=== PATIENT | female | born 1955 | race Caucasian/White ===

== ENCOUNTER 2018-09-22 22:19 | Inpatient (IN) | payer MEDICARE | END 2018-09-24 13:05 | disposition home or self-care (01) | LOC: ED HOLD 09-23 01:11 → ER 22:19 → SUR 3N 09-23 18:49 | DX: J96.01 Acute respiratory failure with hypoxia (principal); J44.1 Chronic obstructive pulmonary disease with (acute) exacerbation; J44.0 Chronic obstructive pulmonary disease with (acute) lower respiratory infection; J20.9 Acute bronchitis, unspecified; E87.6 Hypokalemia; I10 Essential (primary) hypertension ==

== ENCOUNTER 2018-12-11 07:21 | Emergency (ER) | payer MEDICARE ==
[~2018-12-11] VITALS: Ht 160 cm; Wt 90.9 kg
[~2018-12-11 07:21] MED LIST: ALBU6.7H INH; FAMO20TA8 PO; METO50TA7 PO
[2018-12-11] MEDS ORDERED: SULF1TAB49 PO (07:45)
[2018-12-11] MEDS ORDERED: CEPH500C5 PO (07:57)
[2018-12-11] MEDS ORDERED: PRED20TA PO (07:57)
[2018-12-11] MEDS ORDERED: diphenhydrAMINE 25mg capsule PO ONE (08:00)
[2018-12-11] MEDS ORDERED: methylPREDNISolone sod succ 125mg/2ml vial IM ONE (08:00)
[2018-12-11 08:13] VITALS: BP 159/87
== END 2018-12-11 08:16 | disposition home or self-care (01) ==
LOC: ER 07:22
DX: T63.441A Toxic effect of venom of bees, accidental (unintentional), initial encounter (principal); L03.011 Cellulitis of right finger; I10 Essential (primary) hypertension; Z79.2 Long term (current) use of antibiotics; Z79.899 Other long term (current) drug therapy; Y92.89 Other specified places as the place of occurrence of the external cause
CPT/HCPCS: 96372; 99283; J2930; Q0163

== ENCOUNTER 2021-09-19 10:24 | Emergency (ER) | payer MEDICARE ==
[~2021-09-19] VITALS: Ht 160 cm; Wt 84.6 kg
[~2021-09-19 10:24] MED LIST changes: -ALBU6.7H INH; +ALBU6.7H9 INH
[2021-09-19 12:10] LABS: BASOPHILS # (AUTO) 0.1 X10'3 (0-0.2); BASOPHILS % (AUTO) 0.8 % (0-1); EOSINOPHILS % (AUTO) 0.5 % (0-6); HEMATOCRIT 39.8 % (35.0-45.0); HEMOGLOBIN 13.2 g/dl (12.0-16.0); LYMPHOCYTES # (AUTO) 1.3 X10'3 (1.1-4.8); LYMPHOCYTES % (AUTO) 15.6 % (21-51); MEAN CORPUSCULAR HEMOGLOBIN 30.4 PG (27.0-31.0); MEAN PLATELET VOLUME 9.9 FL (7.4-10.4); MONOCYTES # (AUTO) 0.7 X10'3 (0-0.9); NEUTROPHILS % (AUTO) 74.1 % (42-75); PLATELET COUNT 205 X10'3 (140-440); RED BLOOD COUNT 4.33 X10'6 (4.20-5.60); RED CELL DISTRIBUTION WIDTH 12.4 % (11.5-14.5); WHITE BLOOD COUNT 8.1 X10'3 (4.5-11.0)
[2021-09-19 12:23] LABS: ALANINE AMINOTRANSFERASE 22 U/L (12-78); ALBUMIN 3.6 G/DL (3.4-5.0); ALBUMIN/GLOBULIN RATIO 1.4 (1.1-1.5); ALKALINE PHOSPHATASE 48 IU/L (46-116); ANION GAP 11 (8-16); ASPARTATE AMINO TRANSFERASE 16 U/L (10-37); BILIRUBIN,TOTAL 0.5 MG/DL (0.1-1.0); BLOOD UREA NITROGEN 17 MG/DL (7-18); BUN/CREATININE RATIO 17.7 (6.6-38.0); CALCIUM 8.7 MG/DL (8.5-10.1); CHLORIDE 101 MMOL/L (99-107); CREATININE 0.96 MG/DL (0.40-0.90); GLUCOSE 110 MG/DL (70-104); LIPASE 77 U/L (73-393); POTASSIUM 3.1 MMOL/L (3.5-5.1); SODIUM 142 MMOL/L (135-145); TOTAL CARBON DIOXIDE 30.5 MMOL/L (24-32); TOTAL PROTEIN 6.2 G/DL (6.4-8.2); eGFR 58 ML/MIN
[2021-09-19 12:34] LABS: CLARITY,URINE SLIGHTLY CLOUDY (Clear); COLOR,URINE YELLOW (Yellow); GLUCOSE, URINE NEGATIVE (Neg); KETONES,URINE 15 mg/dl (Neg); LEUKOCYTE ESTERASE ,URINE NEGATIVE (Neg); NITRITES, URINE NEGATIVE (Neg); OCCULT BLOOD,URINE NEGATIVE (Neg); PH,URINE 8.5 (4.8-8.0); PROTEIN,URINE NEGATIVE (Neg); UROBILINOGEN,URINE 0.2 E.U/dL (0.2-1.0)
[2021-09-19 12:35] LABS: UA COLLECTION TYPE CLN CATCH MIDSTREAM
[2021-09-19] MEDS ORDERED: iohexol 300mg/ml 100ml inj. ONE (12:40)
[2021-09-19 12:45] LABS: HYALINE CASTS 0-3 /LPF (NEGATIVE); MUCUS STRANDS FEW /LPF (Neg); SQUAMOUS EPITHELIAL CELL,UR FEW /LPF (FEW)
[2021-09-19 12:46] LABS: BACTERIA,URINE FEW /HPF (Neg); RBC,URINE 0-2 /HPF (0-2); WBC,URINE 0-4 /HPF (0-4)
[2021-09-19 12:47] LABS: AMORPHOUS PHOSPHATES 1+
[2021-09-19] MEDS ORDERED: FAMO40TA73 PO (14:13)
[2021-09-19 14:36] VITALS: BP 129/74
== END 2021-09-19 14:38 | disposition home or self-care (01) ==
LOC: ER 10:24
DX: R10.84 Generalized abdominal pain (principal); R11.0 Nausea; E78.00 Pure hypercholesterolemia, unspecified; I10 Essential (primary) hypertension; Z79.899 Other long term (current) drug therapy
CPT/HCPCS: 36415; 74177; 80053; 81001; 83690; 85025; 99285; Q9967